=== PATIENT | male | born 1980 | race Caucasian/White ===

== ENCOUNTER 2017-05-29 17:43 | Emergency (ER) | payer OTHER ==
[2017-05-29 17:52] VITALS: TEMP 98.4
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
--- NOTE | 2017-05-29 17:54 | CPEKG ---
Heart Rate: 111 RR Interval: 541 P-R Interval: 140 QRSD Interval: 88 QT Interval: 332 QTC Interval: 451 P [place]: 69 QRS [place]: 46 T Wave [place]: 13 EKG Severity - OTHERWISE NORMAL ECG - EKG Impression: SINUS TACHYCARDIA Electronically Signed By: Drew Mike 01-Jun-2017 07:47:27
[2017-05-29 20:08] VITALS: BP 126/79; PULSE 96; RESP 16; O2SAT 98
== END 2017-05-29 20:07 | disposition home or self-care (01) ==
DX: T75.4XXA Electrocution, initial encounter (principal)